=== PATIENT | female | born 1995 | race Hispanic/Latino ===

== ENCOUNTER 2018-02-27 08:44 | Emergency (ER) | payer OTHER, SELFPAY ==
--- NOTE | 2018-02-27 10:30 | ER ---
Nurse's Notes [facility] Name: Caprice Haider Age: 23 yrs Sex: Female : 1995 Arrival Date: 02/27/2018 Time: 09:00 Bed 21 Private MD: None, None Diagnosis: Streptococcal pharyngitis Presentation: 02/27 09:29 Presenting complaint: Patient states: sore throat started 2 days ago, with white spots, iw pain is getting worse, fever yesterday. Transition of care: patient was not received from another setting of care. Onset of symptoms was February 25, 2018. Initial Sepsis Screen: Does the patient meet any 2 criteria? No. Patient's initial sepsis screen is negative. Does the patient have a suspected source of infection? No. Patient's initial sepsis screen is negative. Care prior to arrival: None. 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 - Social history:: Smoking status: Patient/guardian denies using tobacco. Screenin:51 Abuse screen: Denies threats or abuse. Nutritional screening: No deficits noted. pt Tuberculosis screening: No symptoms or risk factors identified. Fall Risk None identified. Assessment: 10:50 General: Appears in no apparent distress. uncomfortable, Behavior is calm, cooperative. pt Pain: Complains of pain in soft palate, uvula, left aspect of posterior pharynx and right aspect of posterior pharynx Pain currently is 8 out of 10 on a pain scale. Quality of pain is described as burning, aching. Neuro: No deficits noted. Cardiovascular: No deficits noted. Respiratory: Airway is patent Respiratory effort is even, unlabored, Breath sounds are clear. GI: Patient currently denies diarrhea, nausea, vomiting. : No deficits noted. EENT: Throat is reddened has patchy exudate. Derm: No deficits noted. Vital Signs: 09:30 BP 138 / 81; Pulse 105; Resp 18; Temp 98.6; Pulse Ox 100% on R/A; Weight 90.72 kg; iw Height 5 ft. 2 in. (157.48 cm); Pain 08/16; 09:30 Body Mass Index 36.58 (90.72 kg, 157.48 cm) ED Course: 09:00 Patient arrived in ED. mr 09:00 None, None is Private Physician. mr 09:30 Triage completed. iw 09:30 Arm band placed on. iw 10:26 Donovan Mon NP is PHCP. pm1 10:26 Dyllan Darling MD is Attending Physician. pm1 10:51 Patient has correct armband on for positive identification. pt 10:52 No provider procedures requiring assistance completed. Patient did not have IV access pt during this emergency room visit. Administered Medications: 10:36 Drug: Decadron - Dexamethasone 10 mg Route: IVP; Site: Other; pt Outcome: 10:30 Discharge ordered by . pm1 10:52 Discharged to home ambulatory. pt 10:52 Condition: good 10:52 Discharge instructions given to patient, Instructed on discharge instructions, no drinking with medication, medication usage, Demonstrated understanding of instructions, follow-up care, medications, Prescriptions given X 1. 10:52 Patient left the ED. pt Signatures: Citlalli Byrne RN RN pt Unique Gonsalez mr Elsa Matthews RN RN Donovan Mon NP TALENT PROGRAM MANAGER pm1 Corrections: (The following items were deleted from the chart) :31 09:30 LMP 11/2017 [facility]
--- NOTE | 2018-02-27 10:31 | EDPHYS ---
Physician Documentation [facility] Name: Caprice Haider Age: 23 yrs Sex: Female : 1995 Arrival Date: 02/27/2018 Time: 09:00 Bed 21 Private MD: None, None ED Physician Dyllan Darling HPI: 02/27 17:58 This 23 yrs old Female presents to ER via Ambulatory with complaints of Sore pm1 Throat. 17:58 The patient presents with sore throat. The patient describes throat pain as burning, pm1 constant. Onset: The symptoms/episode began/occurred yesterday. Severity of symptoms: in the emergency department the symptoms are actually worse. Modifying factors: The symptoms are alleviated by nothing, the symptoms are aggravated by swallowing, Patient's oral intake status: good The patient has had contact with sick daughter, son. Associated signs and symptoms: Pertinent positives: fever, Pertinent negatives cough. The patient has not experienced similar symptoms in the past. The patient has not recently seen a physician. 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 - Social history:: Smoking status: Patient/guardian denies using tobacco. ROS: 17:58 Eyes: Negative for injury, pain, redness, and discharge. pm1 17:58 Neck: Negative for injury, pain, and swelling, Cardiovascular: Negative for chest pain, palpitations, and edema, Respiratory: Negative for shortness of breath, cough, wheezing, and pleuritic chest pain, Abdomen/GI: Negative for abdominal pain, nausea, vomiting, diarrhea, and constipation, Back: Negative for injury and pain, MS/Extremity: Negative for injury and deformity, Skin: Negative for injury, rash, and discoloration, Neuro: Negative for headache, weakness, numbness, tingling, and seizure. 17:58 Constitutional: Positive for fever, Negative for poor PO intake. 17:58 ENT: Positive for sore throat, Negative for ear pain. Exam: 17:58 Constitutional: This is a well developed, well nourished patient who is awake, alert, pm1 and in no acute distress. Head/Face: Normocephalic, atraumatic. 17:58 Neck: Trachea midline, no thyromegaly or masses palpated, and no cervical lymphadenopathy. Supple, full range of motion without nuchal rigidity, or vertebral point tenderness. No Meningismus. Chest/axilla: Normal chest wall appearance and motion. Nontender with no deformity. No lesions are appreciated. Cardiovascular: Regular rate and rhythm with a normal S1 and S2. No gallops, murmurs, or rubs. Normal PMI, no JVD. No pulse deficits. Respiratory: Lungs have equal breath sounds bilaterally, clear to auscultation and percussion. No rales, rhonchi or wheezes noted. No increased work of breathing, no retractions or nasal flaring. Abdomen/GI: Soft, non-tender, with normal bowel sounds. No distension or tympany. No guarding or rebound. No evidence of tenderness throughout. Back: No spinal tenderness. No costovertebral tenderness. Full range of motion. Skin: Warm, dry with normal turgor. Normal color with no rashes, no lesions, and no evidence of cellulitis. MS/ Extremity: Pulses equal, no cyanosis. Neurovascular intact. Full, normal range of motion. 17:58 ENT: External ear(s): are unremarkable, Ear canal(s): are normal, TM's: are normal, Nose: is normal, Posterior pharynx: Airway: normal, no evidence of obstruction, patent, Tonsils: bilaterally enlarged, with erythema, with exudate, no ulcerations, peritonsillar mass, is not appreciated, pooling of secretions, is not appreciated. 17:58 Neuro: Orientation: is normal, Motor: is normal, moves all fours, Gait: is steady, at a normal pace, without difficulty. Vital Signs: 09:30 BP 138 / 81; Pulse 105; Resp 18; Temp 98.6; Pulse Ox 100% on R/A; Weight 90.72 kg; iw Height 5 ft. 2 in. (157.48 cm); Pain 10/10; 09:30 Body Mass Index 36.58 (90.72 kg, 157.48 cm) iw MDM: 10:29 Data reviewed: vital signs. Data interpreted: Pulse oximetry: on room air is 100 %. pm1 Interpretation: normal. Counseling: I had a detailed discussion with the patient and/or guardian regarding: the historical points, exam findings, and any diagnostic results supporting the discharge/admit diagnosis, lab results, the need for outpatient follow up, to return to the emergency department if symptoms worsen or persist or if there are any questions or concerns that arise at home. 10:30 Patient medically screened. pm1 02/27 09:32 Order name: Strep; Complete Time: 10:38 iw Administered Medications: 10:36 Drug: Decadron - Dexamethasone 10 mg Route: IVP; Site: Other; pt Disposition: 02/28 06:56 Co-signature as Attending Physician, Dyllan Darling MD I agree with the assessment and gilberto plan of care. Disposition: 02/27/18 10:30 Discharged to Home. Impression: Streptococcal pharyngitis. - Condition is Stable. - Discharge Instructions: Salt Water Gargle, Strep Throat. - Prescriptions for Amoxicillin 500 mg Oral Capsule - take 1 capsule by ORAL route every 8 hours for 10 days; 30 tablet. - Medication Reconciliation Form, Thank You Letter, Antibiotic Education form. - Follow up: Emergency Department; When: As needed; Reason: Worsening of condition. Follow up: Private Physician; When: 2 - 3 days; Reason: Recheck today's complaints, Continuance of care, Re-evaluation by your physician. - Problem is new. - Symptoms have improved. Signatures: Dispatcher [employer] Dyllan Richardson MD MD cha Townsend, Paige, RN RN pt Elsa Matthews RN RN iw Donovan Mon NP DIE MACHINE OPERATOR pm1
[2018-02-27] MEDS ORDERED: DEXAMETHASONE 10 MG/ML VIAL ONE (10:33)
[2018-02-27 10:55] VITALS: BP 138/81; TEMP 98.6; O2SAT 100
== END 2018-02-27 10:52 | disposition home or self-care (01) ==
LOC: ER 08:44
DX: J02.0 Streptococcal pharyngitis (principal)
CPT/HCPCS: 87081; 96374; 99283; J1100

== ENCOUNTER 2018-12-27 18:33 | Emergency (ER) | payer OTHER ==
[2018-12-27] MEDS ORDERED: MEPERIDINE HCL 25 MG/0.5 ML ONE (19:33)
[2018-12-27] MEDS ORDERED: METOCLOPRAMIDE 10 MG/2mL INJ ONE (19:34)
[2018-12-27] MEDS ORDERED: NA CHLORIDE 0.9% 1,000 ML ONE (19:34)
--- NOTE | 2018-12-27 19:53 | RAD REPORT ---
EXAM DESCRIPTION: CT - Head Brain Wo Cont - 12/27/2018 7:43 pm CLINICAL HISTORY: HEADACHE COMPARISON: No comparisons TECHNIQUE: All CT scans are performed using dose optimization technique as appropriate and may inclu de automated exposure control or mA/KV adjustment according to patient size. FINDINGS: No intracranial hemorrhage, hydrocephalus or extra-axial fluid collection.No areas of brai n edema or evidence of midline shift. The paranasal sinuses and mastoids are clear. The calvarium is intact. IMPRESSION: No acute intracranial abnormality.
[2018-12-27 19:59] LABS: Urine Blood NEGATIVE (NEG); Urine Glucose NEGATIVE (NEG); Urine Protein 2+ (NEG); Urine Specific Gravity 1.015 (1.005-1.030); Urine pH 8.5 (5.0-7.0)
--- NOTE | 2018-12-27 20:39 | EDPHYS ---
Physician Documentation [facility] Name: Caprice Haider Age: 23 yrs Sex: Female : 1995 Arrival Date: 12/27/2018 Time: 18:36 Bed 7 Private MD: ED Physician Zackery Machado HPI: 12/27 19:36 This 23 yrs old Female presents to ER via Ambulatory with complaints of rn Headache. 19:36 The patient complains of pain to the left side of head. The patient describes the rn headache as aching. 19:36 Onset: The symptoms/episode began/occurred 2 week(s) ago. Severity of symptoms: At its rn worst the pain was moderate, in the emergency department the pain is unchanged. the symptoms are aggravated by lights, noise. The patient has experienced similar episodes in the past. Reports intermittent headache/migraines for 1-2 months, today headache is worse, worse with lights and sounds, no head injury, no focal neuro complaint, no fever.. 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 - Social history:: Smoking status: Patient/guardian denies using tobacco. - Ebola Screening: : No symptoms or risks identified at this time. - Family history:: not pertinent. - Hospitalizations: : No recent hospitalization is reported. ROS: 19:38 Constitutional: Negative for fever, chills, and weight loss, Eyes: Negative for injury, rn pain, redness, and discharge, Neck: Negative for injury, pain, and swelling, Cardiovascular: Negative for chest pain, palpitations, and edema, Respiratory: Negative for shortness of breath, cough, wheezing, and pleuritic chest pain, Abdomen/GI: Negative for abdominal pain, diarrhea, and constipation, MS/Extremity: Negative for injury and deformity, Skin: Negative for injury, rash, and discoloration, Neuro: Negative for weakness, numbness, tingling, and seizure. Exam: 19:38 Constitutional: This is a well developed, well nourished patient who is awake, alert, rn and in no acute distress. Head/Face: Normocephalic, atraumatic. Eyes: Pupils equal round and reactive to light, extra-ocular motions intact. Lids and lashes normal. Conjunctiva and sclera are non-icteric and not injected. Cornea within normal limits. Periorbital areas with no swelling, redness, or edema. ENT: MMM Neck: Supple, full range of motion without nuchal rigidity. No Meningismus. Skin: Warm, dry with normal turgor. Normal color with no rashes, no lesions, and no evidence of cellulitis. MS/ Extremity: Pulses equal, no cyanosis. Neurovascular intact. Full, normal range of motion. Equal circumference. Neuro: Awake and alert, GCS 15, oriented to person, place, time, and situation. Cranial nerves II-XII grossly intact. Motor strength 5/5 in all extremities. Sensory grossly intact. Cerebellar exam normal. Normal gait. Vital Signs: 19:14 BP 141 / 91; Pulse 73; Resp 16; Temp 97.8; Pulse Ox 100% on R/A; Weight 105.23 kg; ea Height 5 ft. 2 in. (157.48 cm); Pain 10/10; 20:04 BP 127 / 50; Pulse 60; Resp 18; Pulse Ox 99% ; ea 19:14 Body Mass Index 42.43 (105.23 kg, 157.48 cm) ea Sunshine Coma Score: 20:37 Eye Response: spontaneous(4). Verbal Response: oriented(5). Motor Response: obeys rn commands(6). Total: 15. MDM: 19:07 Patient medically screened. rn 20:37 Differential diagnosis: migraine, tension headache, vasomotor headache. Data reviewed: rn vital signs, nurses notes, lab test result(s), radiologic studies, CT scan, and as a result, I will discharge patient. Counseling: I had a detailed discussion with the patient and/or guardian regarding: the historical points, exam findings, and any diagnostic results supporting the discharge/admit diagnosis, lab results, radiology results, the need for outpatient follow up, to return to the emergency department if symptoms worsen or persist or if there are any questions or concerns that arise at home. Special discussion: I discussed with the patient/guardian in detail that at this point there is no indication for admission to the hospital. It is understood, however, that if the symptoms persist or worsen the patient needs to return immediately for re-evaluation. Based on the history and exam findings, there is no indication for further emergent testing or inpatient evaluation. I discussed with the patient/guardian the need to see the neurologist for further evaluation of the symptoms. 12/27 19:36 Order name: Urine Dipstick--Ancillary (enter results); Complete Time: 20:00 [facility] 12/27 19:36 Order name: Urine --Ancillary (enter results); Complete Time: 20:00 [facility] 12/27 19:15 Order name: CT Head Brain wo Cont; Complete Time: 19:55 rn 12/27 19:15 Order name: Urine Dipstick-Ancillary (obtain specimen); Complete Time: 19:43 rn 12/27 19:15 Order name: Urine Test (obtain specimen); Complete Time: 19:42 rn 12/27 19:15 Order name: IV Start; Complete Time: 19:42 rn Administered Medications: 09:25 Drug: NS 0.9% 1000 ml Route: IV; Rate: 1000 ml; Site: right antecubital; ea 20:30 Follow up: Response: No adverse reaction; IV Status: Completed infusion; IV Intake: ea 900ml 19:25 Drug: Reglan 10 mg Route: IVP; Site: right antecubital; ea 20:04 Follow up: Response: No adverse reaction ea 19:25 Drug: Demerol 25 mg Route: IVP; Site: right antecubital; ea 20:03 Follow up: Response: No adverse reaction; Pain is decreased ea Disposition: 12/27/18 20:38 Discharged to Home. Impression: Migraine. - Condition is Stable. - Discharge Instructions: Migraine Headache. - Medication Reconciliation Form, Thank You Letter, Antibiotic Education, Prescription Opioid Use form. - Follow up: Karthikeyan Rico MD; When: As needed; Reason: Recheck today's complaints, Re-evaluation by your physician. - Problem is new. - Symptoms have improved. Signatures: Dispatcher [employer] EDMS Zackery Machado MD MD rn Antunez, Elena, RN RN ea Corrections: (The following items were deleted from the chart) 20:48 20:38 12/27/2018 20:38 Discharged to Home. Impression: Migraine. Condition is Stable. ea Forms are Medication Reconciliation Form, Thank You Letter, Antibiotic Education, Prescription Opioid Use. Follow up: Karthikeyan Rico; When: As needed; Reason: Recheck today's complaints, Re-evaluation by your physician. Problem is new. Symptoms have improved. rn
--- NOTE | 2018-12-27 20:39 | ER ---
Nurse's Notes [facility] Name: Caprice Haider Age: 23 yrs Sex: Female : 1995 Arrival Date: 12/27/2018 Time: 18:36 Bed 7 Private MD: Diagnosis: Migraine Presentation: 12/27 19:11 Presenting complaint: Patient states: Pt reports migraine that started this AM with ea photophobia and nausea. Transition of care: patient was not received from another setting of care. Onset of symptoms was December 27, 2018. Risk Assessment: Do you want to hurt yourself or someone else? Patient reports no desire to harm self or others. Initial Sepsis Screen: Does the patient meet any 2 criteria? No. Patient's initial sepsis screen is negative. Does the patient have a suspected source of infection? No. Patient's initial sepsis screen is negative. Care prior to arrival: None. 19:11 Method Of Arrival: Ambulatory ea 19:11 Acuity: KAMILLE 3 ea Triage Assessment: 19:16 Headache History: The patient has had previous headaches and this one is more severe ea than previous episodes. General: Appears uncomfortable, Behavior is calm. Pain: Complains of pain in forehead, right eye, left eye, right synagogue and left synagogue Pain currently is 10 out of 10 on a pain scale. Quality of pain is described as aching, Pain began this AM Also complains of nausea. Neuro: Level of Consciousness is awake, alert, obeys commands, Oriented to person, place, time, situation. Cardiovascular: Patient's skin is warm and dry. Respiratory: Airway is patent Respiratory effort is even, unlabored, Respiratory pattern is regular, symmetrical. Derm: Skin is pink, warm \T\ dry. 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 - Social history:: Smoking status: Patient/guardian denies using tobacco. - Ebola Screening: : No symptoms or risks identified at this time. - Family history:: not pertinent. - Hospitalizations: : No recent hospitalization is reported. Screenin:15 Abuse screen: Denies threats or abuse. Nutritional screening: No deficits noted. ea Tuberculosis screening: No symptoms or risk factors identified. Fall Risk None identified. Assessment: 19:18 Reassessment: see triage assessment. ea 20:04 Reassessment: Patient and/or family updated on plan of care and expected duration. Pain ea level reassessed. Patient is alert, oriented x 3, equal unlabored respirations, skin warm/dry/pink. Patient states feeling better. Patient states symptoms have improved. 20:46 Reassessment: Patient and/or family updated on plan of care and expected duration. Pain ea level reassessed. Patient is alert, oriented x 3, equal unlabored respirations, skin warm/dry/pink. Discharge instructions given to patient, verbalized the understanding of instruction Patient states feeling better. Patient states symptoms have improved. Vital Signs: 19:14 BP 141 / 91; Pulse 73; Resp 16; Temp 97.8; Pulse Ox 100% on R/A; Weight 105.23 kg; ea Height 5 ft. 2 in. (157.48 cm); Pain 10/10; 20:04 BP 127 / 50; Pulse 60; Resp 18; Pulse Ox 99% ; ea 19:14 Body Mass Index 42.43 (105.23 kg, 157.48 cm) ea Sunshine Coma Score: 20:37 Eye Response: spontaneous(4). Verbal Response: oriented(5). Motor Response: obeys rn commands(6). Total: 15. ED Course: 18:36 Patient arrived in ED. rg4 19:07 Zackery Machado MD is Attending Physician. rn 19:11 Shira Zambrano RN is Primary Nurse. ea 19:11 Patient has correct armband on for positive identification. Bed in low position. Call ea light in reach. 19:11 Arm band placed on right wrist. Patient placed in an exam room, on a stretcher, on ea pulse oximetry. 19:13 Triage completed. ea 19:[address] via wheelchair. 2 19:42 CT completed. Patient tolerated procedure well. Patient moved back from CT. nj 19:43 CT Head Brain wo Cont In Process Unspecified. EDMS 20:38 Karthikeyan Rico MD is Referral Physician. rn 20:46 No provider procedures requiring assistance completed. IV discontinued, intact, ea bleeding controlled, No redness/swelling at site. Pressure dressing applied. Administered Medications: 09:25 Drug: NS 0.9% 1000 ml Route: IV; Rate: 1000 ml; Site: right antecubital; ea 20:30 Follow up: Response: No adverse reaction; IV Status: Completed infusion; IV Intake: ea 900ml 19:25 Drug: Reglan 10 mg Route: IVP; Site: right antecubital; ea 20:04 Follow up: Response: No adverse reaction ea 19:25 Drug: Demerol 25 mg Route: IVP; Site: right antecubital; ea 20:03 Follow up: Response: No adverse reaction; Pain is decreased ea Intake: 20:30 IV: 900ml; Total: 900ml. ea Outcome: 20:38 Discharge ordered by . rn 20:46 Discharged to home ambulatory, with family. ea 20:46 Condition: improved 20:46 Discharge instructions given to patient, Instructed on discharge instructions, follow up and referral plans. Demonstrated understanding of instructions, follow-up care. 20:48 Patient left the ED. ea Signatures: Dispatcher [employer] EDZackery Bruno MD MD rn Garcia, Rubi 4 Rod Toth [facility] Shira Zambrano RN RN sheldon
[2018-12-27 21:24] VITALS: BP 135/84; O2SAT 97
[2018-12-27 21:28] VITALS: TEMP 97.8
== END 2018-12-27 20:48 | disposition home or self-care (01) ==
LOC: ER 18:33
DX: G43.909 Migraine, unspecified, not intractable, without status migrainosus (principal)
CPT/HCPCS: 70450; 81003; 81025; 96361; 96374; 96375; 99284; J2175; J2765; J7030